=== PATIENT | female | born 1960 | race African-American/Black ===

== ENCOUNTER 2020-12-16 13:34 | Emergency (ER) | payer OTHER, SELFPAY ==
[~2020-12-16] VITALS: Ht 154.9 cm; Wt 98.0 kg
[~2020-12-16 13:34] MED LIST: ATENOLOL100 MG ORAL; CATAPRES0.2 MG ORAL; HYDROCHLOROTHIA25 MG ORAL; HYDROCODON-ACE1 EA15 ORAL; PHENERGAN25 M1 ORAL
[2020-12-16] MEDS ORDERED: CLONIDINE HCL0.1 M1 PO (13:54)
[2020-12-16] MEDS ORDERED: HYDRALAZINE HC100 MG ORAL (13:54)
[2020-12-16] MEDS ORDERED: ATIVAN2 MG ORAL (13:54)
[2020-12-16] MEDS ORDERED: FUROSEMIDE40 MG ORAL (13:54)
[2020-12-16] MEDS ORDERED: LOSARTAN POTASS50 MG ORAL (13:54)
[2020-12-16] MEDS ORDERED: Aspirin Baby 81mg ORAL ONE (14:15)
--- NOTE | 2020-12-16 14:22 | Emergency Room Report ---
History of Present Illness General Chief Complaint: Back Pain-No Injury Source: Patient Present Illness HPI Patient is a 60-year-old female past medical history of hypertension who presents to the ER complaining of lower extremity edema. Patient complains of worsening edema over the past 2 weeks. She also complains of exertional shortness of breath. She states that she has had intermittent left-sided chest pain worse on exertion. She states that it is hard for her to get up the stairs. She denies any fever or chills. She denies any nausea or vomiting. She complains of right-sided flank pain. She complains of urinary frequency and is on Lasix. She went to see her primary care physician who did blood work and told her that she is in kidney failure and to come to the emergency room for further treatment. Patient has no history of renal insufficiency. Allergies: Coded Allergies: TETRACYCLINE (Verified Allergy, 10/27/13) HIVES COVID-19 Screening Contact w/high risk pt: No Experienced COVID-19 symptoms?: No COVID-19 Testing performed [employer]: Yes COVID-19 Screening: Negative COVID-19 COVID-19 Testing Source: [employer] Patient History Reviewed Nursing Documentation: PMH: Agreed; PSxH: Agreed Nursing Documentation-PMH Past Medical History: No History, Except For Hx Cardiac Problems: Yes Hx Hypertension: Yes Hx Cancer: No Hx Gastrointestinal Problems: No Hx Neurological Problems: No Review of Systems All Other Systems: negative except mentioned in HPI Physical Exam Vital Signs Date Time Temp Pulse Resp B/P (MAP) Pulse Ox O2 Delivery O2 Flow Rate FiO2 12/16/20 13:42 97.9 80 16 221/113 (149) 96 Room Air Sp02 EP Interpretation: reviewed, normal General Appearance: no apparent distress, alert, GCS 15, non-toxic Head: normocephalic, atraumatic Eyes: bilateral eye normal inspection, bilateral eye PERRL ENT: hearing grossly normal, normal pharynx, no angioedema, normal voice Neck: full range of motion, supple/symm/no masses Respiratory: chest non-tender, rales, speaking full sentences Cardiovascular #1: regular rate, rhythm Gastrointestinal: non tender, soft, no guarding, no rebound Genitourinary: CVA tenderness (R) Musculoskeletal: swelling - R>L Neurologic: tube inspector III-XII nml as tested, oriented x3 Psychiatric: no suicidal/homicidal ideation Skin: no rash Lymphatic: no adenopathy Medical Decision Making Reaction to Intervention: No change Diagnostic Impression: Primary Impression: Acute renal failure Additional Impressions: Chest pain Edema CHF (congestive heart failure) ER Course Patient is hypertensive and edematous. Patient given hydralazine 10 mg IV as well as Lasix and aspirin. Patient's ultrasound demonstrates no evidence for DVT. Patient troponin is negative. Patient will be transferred to [facility] for further treatment and evaluation. Laboratory Tests Test 12/16/20 13:54 12/16/20 14:18 Urine Color Pale yellow Urine Appearance Slightly cloudy Urine pH 6 (4.5-8.0) Urine Specific [place] 1.015 (1.005-1.035) Urine Protein 4+ (NEGATIVE) H Urine Glucose (UA) Negative (NEGATIVE) Urine Ketones Negative (NEGATIVE) Urine Blood 4+ (NEGATIVE) H Urine Nitrite Negative (NEGATIVE) Urine Bilirubin Negative (NEGATIVE) Urine Urobilinogen Normal MG/DL (0.0-1.0) Urine Leukocyte Esterase 1+ (NEGATIVE) H Urine RBC 30-40 /HPF (0 - 2) H Urine WBC 2-4 /HPF (0 - 2) Urine Squamous Epithelial Cells Moderate /LPF (NONE/OCC) H Urine Bacteria Few /HPF (NONE) Urine Opiates Screen Negative (NEGATIVE) Urine Barbiturates Screen Negative (NEGATIVE) Phencyclidine (PCP) Screen Negative (NEGATIVE) Urine Amphetamines Screen Negative (NEGATIVE) Urine Benzodiazepines Screen Negative (NEGATIVE) Urine Cocaine Screen Negative (NEGATIVE) Urine Marijuana (THC) Screen Negative (NEGATIVE) White Blood Count 10.8 K/UL (4.8-10.8) Red Blood Count 4.48 M/UL (4.20-5.40) Hemoglobin 12.5 G/DL (12.0-16.0) Hematocrit 40.3 % (37.0-47.0) Mean Corpuscular Volume 90 FL (80-99) Mean Corpuscular Hemoglobin 27.9 PG (27.0-31.0) Mean Corpuscular Hemoglobin Concent 31.0 G/DL (32.0-36.0) L Red Cell Distribution Width 15.0 % (11.6-14.8) H Platelet Count 336 K/UL (150-450) Mean Platelet Volume 6.5 FL (6.5-10.1) Neutrophils (%) (Auto) 84.5 % (45.0-75.0) H Lymphocytes (%) (Auto) 8.3 % (20.0-45.0) L Monocytes (%) (Auto) 5.7 % (1.0-10.0) Eosinophils (%) (Auto) 0.1 % (0.0-3.0) Basophils (%) (Auto) 1.4 % (0.0-2.0) Prothrombin Time 10.5 SEC (9.30-11.50) Prothrombin Time INR 0.9 (0.9-1.1) Activated Partial Thromboplast Time 27 SEC (23-33) Sodium Level 145 MMOL/L (136-145) Potassium Level 4.0 MMOL/L (3.5-5.1) Chloride Level 109 MMOL/L (98-107) H Carbon Dioxide Level 27 MMOL/L (21-32) Anion Gap 9 mmol/L (5-15) Blood Urea Nitrogen 55 mg/dL (7-18) H Creatinine 5.6 MG/DL (0.55-1.30) H Estimated Glomerular Filtration Rate 9.5 mL/min (>60) Glucose Level 140 MG/DL (74-106) H Calcium Level 8.8 MG/DL (8.5-10.1) Magnesium Level 1.9 MG/DL (1.8-2.4) Total Bilirubin 0.4 MG/DL (0.2-1.0) Aspartate Amino Transferase (AST) 26 U/L (15-37) Alanine Aminotransferase (ALT) 31 U/L (12-78) Alkaline Phosphatase 111 U/L (46-116) Troponin I 0.012 ng/mL (0.000-0.056) Pro-B-Type Natriuretic Peptide 1553 pg/mL (0-125) H Total Protein 7.2 G/DL (6.4-8.2) Albumin 2.1 G/DL (3.4-5.0) L Globulin 5.1 g/dL Albumin/Globulin Ratio 0.4 (1.0-2.7) L Lipase 123 U/L (73-393) EKG Diagnostic Results Troponin ordered: Yes When was troponin ordered?: Dec 16, 2020 EKG Time: 14:12 EP Interpretation: Sarah Mcknight MD Rate: normal - 86 bpm Rhythm: NSR ST Segments: no acute changes Other Impression Prolonged QT ASA given to the pt in ED: Yes Rhythm Strip Diag. Results Rhythm Strip Time: 14:22 EP Interpretation: yes - Sarah Mcknight MD Rate: 82 bpm Rhythm: NSR, no PVC's, no ectopy Chest X-Ray Diagnostic Results Chest X-Ray Diagnostic Results : Chest X-Ray Ordered: Yes Indication: Chest Pain EP Interpretation: Yes Interpretation: no consolidation, no effusion, no pneumothorax, no acute cardiopulmonary disease Impression: No acute disease Electronically Signed by: Sarah Mcknight MD Last Vital Signs Date Time Temp Pulse Resp B/P (MAP) Pulse Ox O2 Delivery O2 Flow Rate FiO2 12/16/20 13:42 97.9 80 16 221/113 (149) 96 Room Air Disposition: ADMITTED INPATIENT - [facility] telemetry Condition: Critical Physician Consult: Dr. Villareal Additional Instructions: Please note that this report is being documented using DRAGON technology. This can lead to erroneous entry secondary to incorrect interpretation by the dictating instrument. Sarah Mcknight M.D. Dec 16, 2020 14:22
[2020-12-16] MEDS ORDERED: LORazepam Inj 2mg/ml 1ml IV ONE (14:30)
[2020-12-16 14:33] VITALS: BP 164/135
[2020-12-16 14:51] LABS: BASOPHILS % (AUTO) 1.4 % (0.0-2.0); EOSINOPHILS % (AUTO) 0.1 % (0.0-3.0); HEMATOCRIT 40.3 % (37.0-47.0); HEMOGLOBIN 12.5 G/DL (12.0-16.0); LYMPHOCYTES % (AUTO) 8.3 % (20.0-45.0); MEAN CORPUSCULAR VOLUME 90 FL (80-99); MONOCYTES % (AUTO) 5.7 % (1.0-10.0); NEUTROPHILS % (AUTO) 84.5 % (45.0-75.0); PLATELET COUNT 336 K/UL (150-450); RED BLOOD COUNT 4.48 M/UL (4.20-5.40); WHITE BLOOD COUNT 10.8 K/UL (4.8-10.8)
[2020-12-16 14:54] LABS: CALCIUM 8.8 MG/DL (8.5-10.1); CREATININE 5.6 MG/DL (0.55-1.30)
[2020-12-16 15:00] LABS: APPEARANCE,URINE SLIGHTLY CLOUDY; BILIRUBIN, URINE NEGATIVE (NEGATIVE); COLOR,URINE PALE YELLOW; GLUCOSE, URINE (UA) NEGATIVE (NEGATIVE); KETONES,URINE NEGATIVE (NEGATIVE); LEUKOCYTE ESTERASE ,URINE 1+ (NEGATIVE); NITRITE,URINE NEGATIVE (NEGATIVE); PH,URINE 6 (4.5-8.0); PROTEIN,URINE 4+ (NEGATIVE); UROBILINOGEN,URINE NORMAL MG/DL (0.0-1.0)
--- NOTE | 2020-12-16 15:00 | NUR ---
Patient from home c/o right flank pain with urinary frequency for 1 week. Also states swelling on bilateral lower extremities. Also reports CP 2 days ago and went to her PCP today and suggested to come to ED for eval after blood tests showed decreased renal function. pt placed on continuous cardiac/O2 monitor. pt has htn on arrival. IV placed, labs drawn & sent. ua sent. pt medicated per eMAR. EKG completed. pt resting in bed. CT completed, US at bedside. 1620: pt denies pain. pt given food, cleared by MD for food/fluids. pt still htn, notified, medicated per eMAR.
[2020-12-16 15:01] LABS: INR 0.9 (0.9-1.1)
[2020-12-16 15:05] LABS: ALBUMIN 2.1 G/DL (3.4-5.0); ALBUMIN/GLOBULIN RATIO 0.4 (1.0-2.7); BILIRUBIN,TOTAL 0.4 MG/DL (0.2-1.0)
--- NOTE | 2020-12-16 15:07 | Diagnostic Imaging Report ---
Procedure: XRAY Chest 1v Reason for study: Chest pain Comparison films: 10/27/2013. FINDINGS: Radiograph is underpenetrated. Vascularity is normal. The lung osman are clear bilaterally. Cardiac and mediastinal silhouette are within normal limits. CP angles are sharp. The bony thorax appear unremarkable. IMPRESSION: NO ACUTE CARDIOPULMONARY DISEASE.
--- NOTE | 2020-12-16 15:27 | Diagnostic Imaging Report ---
EXAM: CT CT Abdomen Pelvis WO Contrast INDICATION: Abdominal pain. COMPARISON: None TECHNIQUE: Axial images were obtained through the abdomen pelvis without intravenous contrast. Sagittal and coronal reformats are generated. All CT scans at this facility are performed using dose modulation techniques as appropriate to a performed exam including the following: automated exposure control with adjustment of the mA and/or kV according to patient size. RADIATION DOSE: CTDIvol: 17.2 mGy DLP: 849.6 mGy-cm Dose information generated by the CT scanner is available in PACS. FINDINGS: Small blebs identified in the right middle lobe and right lower lobe. The liver and spleen are homogeneous. Gallbladder is contracted. Pancreas is difficult to separate from adjacent nonopacified small bowel but no gross contour deformity demonstrated. Adrenals are normal in morphology. The kidneys are normal in size, shape and axis. Small bowel loops are nondistended. The colon is also nondistended with average amount of stool. The appendix is normal. There is no free fluid or free air. No pathologic adenopathy demonstrated. Urinary bladder appears unremarkable. There is no suspicious superficial soft tissue or osseous abnormality. IMPRESSION: NO SIGN OF ACUTE DISEASE IN THE ABDOMEN AND PELVIS. CONTRACTED GALLBLADDER. PANCREAS DIFFICULT TO SEPARATE FROM ADJACENT NONOPACIFIED SMALL BOWEL. SMALL BLEBS IN THE RIGHT LUNG BASE.
--- NOTE | 2020-12-16 15:29 | Diagnostic Imaging Report ---
EXAM: ULTRASOUND Venous Duplex Scan [place] Leg CLINICAL HISTORY: Leg pain and edema. COMPARISON: None TECHNIQUE: Doppler examination include grayscale images obtained with and without compression, and color and spectral doppler analysis. FINDINGS: Doppler examination shows normal spontaneity, phasicity, compressibility in the bilateral lower extremities. There is no thrombus identified by grayscale. Normal color and spectral flow is identified. There is no evidence of valvular incompetency or insufficiency. Right lateral subcutaneous edema noted. IMPRESSION: SOFT TISSUE EDEMA BUT NO DVT DEMONSTRATED.
[2020-12-16 15:48] VITALS: BP 181/96
--- NOTE | 2020-12-16 17:03 | NUR ---
pt ambulate with cane to restroom. pt states R flank pain, updated.
[2020-12-16] MEDS ORDERED: fentaNYL 100 mcg/2 mL IV ONE (17:15)
[2020-12-16 17:33] VITALS: BP 144/97
--- NOTE | 2020-12-16 19:10 | NUR ---
1800: pt resting in bed. pt on monitor. will continue to monitor. 1914: handoff to Steven LEONE. pt waiting for transfer to [facility]. pt given fluids. pt on cardiac/O2 monitor. pt denies pain at this time.
[2020-12-16] MEDS ORDERED: Morphine Sulfate 4mg/ml Inj (IV USE ONLY) IVP ONE (19:30)
[2020-12-16 19:35] VITALS: BP 171/90
--- NOTE | 2020-12-16 19:42 | NUR ---
PTE COMPLAINING OF PAIN EDP AWARE , NEW ORDERS RECEIVED FOR PAIN MEDICATION ORDER CARRIED OUT. WILL CONTINUE TO MONITOR.
[2020-12-16 20:00] VITALS: BP 160/82
[2020-12-16 20:48] VITALS: BP 157/82
--- NOTE | 2020-12-16 20:49 | NUR ---
Pte in bed alerta dn stable vitals signs taken and reported , no pain or discomfort verbalized, pain medication effective. Will continue to monitor.
--- NOTE | 2020-12-16 21:23 | NUR ---
TRANSFER TO FLOOR: Patient transferred to [facility] as ordered, per MD. Report given to Laine LEONE. Belongings and medications taken with patient.
== END 2020-12-16 21:25 | disposition other institution (70) ==
LOC: EMR 14:15
DX: N17.9 Acute kidney failure, unspecified (principal); R07.9 Chest pain, unspecified; R60.0 Localized edema; I11.0 Hypertensive heart disease with heart failure; I50.9 Heart failure, unspecified; Z88.1 Allergy status to other antibiotic agents; Z79.899 Other long term (current) drug therapy
CPT/HCPCS: 36415; 71045; 74176; 80053; 80307; 81003; 83690; 83735; 83880; 84484; 85025; 85610; 85730; 93005; 93970; 96374; 96375; 96376; J0360; J1940; J2270; J3010; Z7502; 99285